=== PATIENT | male | born 2000 | race Caucasian/White ===

== ENCOUNTER 2022-05-20 00:03 | Emergency (ER) | payer OTHER ==
[~2022-05-20] VITALS: Ht 172.7 cm; Wt 72.6 kg
[2022-05-20 01:34] VITALS: BP_SYST 143
[2022-05-20] MEDS ORDERED: NAPR-1172 PO (02:39)
[2022-05-20 02:48] VITALS: BP_SYST 118
== END 2022-05-20 02:48 | disposition home or self-care (01) ==
LOC: SED 00:03
DX: S90.31XA Contusion of right foot, initial encounter (principal); Z79.899 Other long term (current) drug therapy; W22.8XXA Striking against or struck by other objects, initial encounter; Y93.89 Activity, other specified; Y92.89 Other specified places as the place of occurrence of the external cause; Y99.8 Other external cause status
CPT/HCPCS: 99283